=== PATIENT | female | born 1995 | race Caucasian/White ===

== ENCOUNTER 2024-05-22 13:09 | Emergency (ER) | payer OTHER ==
[2024-05-22] MEDS ORDERED: ONDANSETRON 4 MG/2 ML VIAL ONE (13:52)
[2024-05-22] MEDS ORDERED: MORPHINE 4 MG/ML SYR ONE (13:52)
[2024-05-22 14:15] LABS: Absolute Basophils 0.1 K/uL (0-0.5); Absolute Eosinophils 0.2 K/uL (0-0.5); Absolute Lymphocytes (CBC) 1.4 K/uL (0.7-4.9); Absolute Monocytes 0.9 K/uL (0.1-1.3); Absolute Neutrophil 15.5 K/uL (1.8-8.0); Basophils % 0.7 % (0-1.3); Eosinophils % 0.9 % (0-4.4); Hematocrit 44.7 % (36.0-45.0); Hemoglobin 14.2 g/dL (12.0-15.0); Lymphocytes % 7.9 % (15.3-44.8); MCH 27.5 pg (27.0-35.0); MCHC 31.7 g/dL (32.0-36.0); MCV 86.8 fL (80-100); MPV 7.4 fL (7.6-11.3); Monocytes % 4.8 % (3.3-12.3); Neutrophils % 85.7 % (41.7-73.7); Platelets 359 thou/uL (152-406); RBC Red Blood Cell Count 5.15 M/uL (3.86-4.86); Red Cell Distribution Width 13.7 % (12.1-15.2)
[2024-05-22 14:34] LABS: Specific Gravity > 1.030 (1.005-1.030)
[2024-05-22 14:39] LABS: Blood Morphology Comment NOT SEEN (NOT SEEN); Platelet Estimate ADEQ; White Blood Cell Scan OK (OK)
[2024-05-22 14:43] LABS: Barbiturates NEGATIVE (NEGATIVE); Benzodiazepines NEGATIVE (NEGATIVE); Cocaine NEGATIVE (NEGATIVE); METHAMPHETAM POSITIVE (NEGATIVE); Methadone NEGATIVE (NEGATIVE); Opiates NEGATIVE (NEGATIVE); Phencyclidine NEGATIVE (NEGATIVE); THC Cannibis POSITIVE (NEGATIVE)
[2024-05-22 14:44] LABS: Albumin 3.2 g/dL (3.4-5.0); Albumin/Globulin Ratio 0.8 (1.1-1.8); Anion Gap 5.8 mEq/L (5.0-15.0); Bilirubin Total 0.4 mg/dL (0.2-1.0); Globulin 4.1 g/dL (2.3-3.5); Potassium 3.8 mEq/L (3.5-5.1); Protein, Total 7.3 g/dL (6.4-8.2)
--- NOTE | 2024-05-22 15:25 | RAD REPORT ---
EXAM DESCRIPTION: CT - Abdomen Pelvis W Contrast - 05/22/2024 3:01 pm CLINICAL HISTORY: Abdominal pain COMPARISON: none. TECHNIQUE: Computed axial tomography of the abdomen pelvis was obtained. 100 cc Isovue-300 was admin istered intravenously. Oral contrast was not requested which limits evaluation of bowel and appendix All CT scans are performed using dose optimization technique as appropriate and may include automated exposure control or mA/KV adjustment according to patient size. FINDINGS: No acute traumatic injury liver, spleen, pancreas, kidneys or bladder is seen. Cholelithiasis No significant adnexal mass There is no evidence of diverticulitis. Mild stranding within the right anterior subcutaneous fat abdomen and pelvis consistent with contusio n IMPRESSION: Mild contusion anterior subcutaneous fat right abdomen and pelvis
--- NOTE | 2024-05-22 15:26 | RAD REPORT ---
EXAM DESCRIPTION: 11 - Thorax Wo Con - 05/22/2024 3:01 pm CLINICAL HISTORY: Chest pain COMPARISON: None TECHNIQUE: Computed axial tomography of the chest was obtained. Contrast was not requested. All CT scans are performed using dose optimization technique as appropriate and may include automated exposure control or mA/KV adjustment according to patient size. FINDINGS: The evaluation of mediastinum, juju and vessels is limited secondary to lack of IV contras t administration. A contusion right anterior subcutaneous fat chest. A mediastinal hematoma is not seen. A pulmonary contusion is not noted A pleural effusion is not present. A pericardial effusion is not seen IMPRESSION: Contusion right anterior subcutaneous tissue of the chest.
[2024-05-22] MEDS ORDERED: KETOROLAC 30 MG/ML INJ ONE (16:39)
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
[2024-05-22 21:42] VITALS: BP 149/86; TEMP 98.1; O2SAT 100
== END 2024-05-22 17:08 | disposition home or self-care (01) ==
LOC: ER 13:09
DX: S30.1XXA Contusion of abdominal wall, initial encounter (principal); S20.221A Contusion of right back wall of thorax, initial encounter; S60.811A Abrasion of right wrist, initial encounter; V49.40XA Driver injured in collision with unspecified motor vehicles in traffic accident, initial encounter
CPT/HCPCS: 85025; 36415; 81025; 83690; 80053; 80307; 71250; 74177; 96375; 96374; 99284; 82077; Q9967; J2405